=== PATIENT | male | born 1985 | race Two or more races ===

== ENCOUNTER 2025-06-30 20:35 | Emergency (ER) | payer MEDICAID, OTHER ==
[~2025-06-30] VITALS: Ht 180.3 cm; Wt 150.3 kg
[2025-06-30 21:39] LABS: Hematocrit 41.6 % (41.0-53.0); Hemoglobin 13.6 g/dL (13.5-17.5); Mean Corpuscular Hemoglobin 27.7 pg (28.0-32.0); Mean Corpuscular Volume 84.7 fL (80.0-100.0); Nucleated Red Blood Cells % 0.1 %
[2025-06-30 21:48] LABS: Chloride 106 mmol/L (98-107); Potassium 4.4 mmol/L (3.5-5.1); Sodium 144 mmol/L (136-145)
[2025-06-30 21:49] LABS: Anion Gap 9 (5-15); Calcium 9.5 mg/dL (8.7-10.4); Carbon Dioxide 29 mmol/L (20-31)
[2025-06-30 21:54] LABS: BUN/Creatinine Ratio 13.0 (10.0-20.0); Blood Urea Nitrogen 16 mg/dL (9-23)
[2025-06-30 21:55] LABS: Glucose 118 mg/dL (74-106)
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
[2025-06-30 22:56] VITALS: PULSE 109; RESP 16; TEMP 98.3; O2SAT 98
[2025-06-30 22:58] VITALS: BP 142/106
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
[2025-06-30] MEDS: OXYCODONE W/ ACETAMINOPHEN 5/325MG TABLET PO ONE (23:42)
[2025-06-30] MEDS ORDERED: HYDR-4902 PO (23:48)
[2025-06-30] MEDS ORDERED: CYCL-837 PO (23:48)
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
== END 2025-07-01 00:04 | disposition home or self-care (01) ==
LOC: ER 20:35
DX: S62.512A Displaced fracture of proximal phalanx of left thumb, initial encounter for closed fracture (principal); S60.312A Abrasion of left thumb, initial encounter; V89.2XXA Person injured in unspecified motor-vehicle accident, traffic, initial encounter; Y92.410 Unspecified street and highway as the place of occurrence of the external cause; Y93.89 Activity, other specified; Y99.8 Other external cause status
CPT/HCPCS: 29125; 36415; 71250; 73130; 73610; 74176; 80048; 83880; 85025; 99284; J7030